=== PATIENT | female | born 1940 | race African-American/Black ===

== ENCOUNTER 2018-05-15 06:39 | Day surgery (SDC) | payer OTHER ==
[2018-05-15] MEDS ORDERED: BUPIVACAINE HCL/PF 2.5 MG/ML - 30 ML VIAL IJ ONE (09:08)
[2018-05-15] MEDS ORDERED: PROPOFOL 20 ML ONE (09:31)
[2018-05-15] MEDS ORDERED: PROMETHAZINE HCL 25 MG/1 ML VIAL IVPUSH PRN (10:36)
[2018-05-15] MEDS ORDERED: ONDANSETRON 4 MG/2 ML VIAL IVPUSH PRN (10:36)
[2018-05-15] MEDS ORDERED: oxyCODONE HCL 5 MG TABLET PO PRN (10:36)
[2018-05-15] MEDS ORDERED: LACTATED RINGERS SOLUTION 1,000 ML IV SCH (10:45)
[2018-05-15 11:45] VITALS: TEMP 98
[2018-05-15 12:35] VITALS: BP 148/72; PULSE 74
--- NOTE | 2018-05-17 10:58 | OP ---
DATE OF OPERATION: 05/15/2018 SURGEON: Curly Sarmiento MD DISTANCE LEARNING TECHNICIAN: TOPHER Varghese PREOPERATIVE DIAGNOSES: 1. Right knee medial and lateral meniscal tear. 2. Right knee cartilage injury. 3. Right knee synovitis. POSTOPERATIVE DIAGNOSES: 1. Right knee medial and lateral meniscal tear. 2. Right knee cartilage injury. 3. Right knee synovitis. PROCEDURE: 1. Right knee arthroscopy with partial meniscectomy, medial and lateral meniscus; CPT code 25754. 2. Right knee arthroscopy with chondroplasty and abrasionplasty; CPT code 45457. 3. Right knee arthroscopy with synovectomy; CPT code 68699. FINDINGS: 1. Medial meniscus with body and posterior horn tear, posterior 1/2. 2. Lateral meniscus with posterior horn tear/minor. 3. Synovitis of the patellofemoral and intercondylar notch area. 4. Grade 2 to 3 cartilage injury of the medial tibial plateau. 5. ACL and PCL intact. 6. Diffuse grade 1 cartilage injury of the lateral joint line. 7. Minor grade 2 to 4 cartilage injury of the medial facet and posterosuperior portion of the patella with 1 to 2 changes of the patellofemoral trochlea. PROCEDURE: Informed consent was obtained. The patient came to the operating room, where the lower extremity was prepped and draped in a sterile fashion. A tourniquet was placed on the upper thigh, but not inflated. Using standard arthroscopic technique, a lateral incision and portal was made to allow for introduction of the camera into the suprapatellar bursa. This was then taken to the medial joint line, where under direct visualization, a medial incision and portal was made. Excessive synovium noted in the medial, lateral and patellofemoral and notch area was removed by an upbiter, shaver and Bovie cautery. This was found to bring in inflammatory tissue into the joint surface, a source of pain and dysfunction. Probing of the medial and lateral meniscus found tears, as described in the findings. These were removed with the upbiter and shaver and taken back to a stable rim. Grade 2 to 3 degenerative changes were treated with a chondroplasty, removing all flaking surfaces with low-setting Bovie along the periphery to prevent further flaking. Grade 4 changes, as noted, were treated with an abrasionplasty, creating a bleeding surface at the bone/cartilage interface. Aggressive debridement with shaver/chris created bleeding surface. Micro fracture also done when indicated in findings. All areas of the knee were once again reexamined. The knee was then drained and a single suture was placed in all portals. A sterile dressing was placed and the patient was transferred to the recovery room without complication. CURLY SARMIENTO M.D. [id number]
--- NOTE | 2018-05-22 16:19 | PATH ---
Surgical Pathology Report Patient Name: PILI LOPEZ Med. Rec. #: [id number] /Age/Gender: 1940 (Age: 77) / F Account: [id number] Location: [facility] AM[facility] Taken: 05/15/2018 Received: 05/15/2018 Reported: 05/22/2018 Physicians: Curly Mac M.D. Specimen(s) Received RIGHT KNEE SHAVINGS Clinical History Right knee arthritis Final Diagnosis KNEE, RIGHT, ARTHROSCOPIC SHAVINGS: FIBROSYNOVIAL AND FIBROCARTILAGINOUS TISSUE. Electronically Signed Esther Ramirez M.D. Gross Description Received in formalin, labeled "right knee shavings," is a 4.5 x 4.2 x 0.3 cm. aggregate of thomas-yellow soft tissue fragments. A appeals representative portion is submitted in one cassette. /05/18/2018 saudi05/18/2018
== END 2018-05-15 12:35 | disposition home or self-care (01) ==
LOC: FASU 06:39
PROVIDERS: ATTEND Orthopaedic Surgery
PROC: 0SBC4ZZ Excision of Right Knee Joint, Percutaneous Endoscopic Approach (ICD-10-PCS; 2018-05-15)
PROC: 0SBC4ZZ Excision of Right Knee Joint, Percutaneous Endoscopic Approach (ICD-10-PCS; 2018-05-15)
PROC: 0SBC4ZZ Excision of Right Knee Joint, Percutaneous Endoscopic Approach (ICD-10-PCS; principal; 2018-05-15 09:30)
DX: S83.241A Other tear of medial meniscus, current injury, right knee, initial encounter (principal); S83.281A Other tear of lateral meniscus, current injury, right knee, initial encounter; S83.8X1A Sprain of other specified parts of right knee, initial encounter; M65.861 Other synovitis and tenosynovitis, right lower leg; X58.XXXA Exposure to other specified factors, initial encounter; Y93.9 Activity, unspecified; Y92.9 Unspecified place or not applicable
CPT/HCPCS: 88304-TC; 94760